=== PATIENT | female | born 1975 | race Caucasian/White ===

== ENCOUNTER → 2021-09-22 | Emergency (ER) | payer OTHER ==
[~2021-09-22] VITALS: Ht 162.6 cm; Wt 72.6 kg
[~2021-09-22] MED LIST: LOSARTAN POTASS50 MG; LOSARTAN-HCTZ1 EACH PO; SYNTHROID50 MCG PO
== END | disposition home or self-care (01) ==
LOC: ER 12:31
DX: S61.451A Open bite of right hand, initial encounter (principal); W55.01XA Bitten by cat, initial encounter; Y92.099 Unspecified place in other non-institutional residence as the place of occurrence of the external cause

== ENCOUNTER → 2024-06-30 | Day surgery (SDC) | payer OTHER ==
[~2024-06-30] MED LIST changes: +DIPHENHYDRAMINE HCL 50 MG/ML VIAL 1ML IV ONE; +GLUCAGON 1 MG VIAL IV STA; +MIDAZOLAM HCL 2 MG/2 ML VIAL IV ONE; +fentaNYL CITRATE 50 MCG/ML AMPUL IV PUSH ONE
== END | disposition home or self-care (01) ==
LOC: ADM 06-12 14:00 → AMB-ENDOS 07:00
PROVIDERS: ATTEND Internal Medicine
DX: D13.2 Benign neoplasm of duodenum (principal); K31.7 Polyp of stomach and duodenum